=== PATIENT | male | born 1960 | race Caucasian/White ===

== ENCOUNTER → 2016-06-09 | Outpatient (CLI) | payer BC ==
[~2016-06-09] MED LIST: GLIM4TAB31 PO; LISI1TAB PO; OXYC-541 PO; [UNRECOGNIZED DRUG - CODE] PO
== END ==
LOC: NWCC 07:53
PROVIDERS: ATTEND Surgery
DX: E11.621 Type 2 diabetes mellitus with foot ulcer (principal); L97.412 Non-pressure chronic ulcer of right heel and midfoot with fat layer exposed; L84 Corns and callosities
CPT/HCPCS: 99213; A6209

== ENCOUNTER → 2016-06-23 | Outpatient (CLI) | payer BC | LOC: NWCC 07:53 | PROVIDERS: ATTEND Surgery | DX: E11.621 Type 2 diabetes mellitus with foot ulcer (principal); L97.412 Non-pressure chronic ulcer of right heel and midfoot with fat layer exposed; L84 Corns and callosities | CPT/HCPCS: 11042; 99213; A6209 ==

== ENCOUNTER → 2016-07-07 | Outpatient (CLI) | payer BC ==
[~2016-07-07] MED LIST changes: +SALINE FLUSH 10ml SYRINGE IVF ONE
== END ==
LOC: NWCC 07:49
PROVIDERS: ATTEND Surgery
DX: E11.621 Type 2 diabetes mellitus with foot ulcer (principal); L97.412 Non-pressure chronic ulcer of right heel and midfoot with fat layer exposed; L84 Corns and callosities; E11.42 Type 2 diabetes mellitus with diabetic polyneuropathy
CPT/HCPCS: 11055; A6209; A6212

== ENCOUNTER → 2016-07-21 | Outpatient (CLI) | payer BC ==
[~2016-07-21] MED LIST changes: -SALINE FLUSH 10ml SYRINGE IVF ONE
== END ==
LOC: NWCC 07:52
PROVIDERS: ATTEND Surgery
DX: E11.621 Type 2 diabetes mellitus with foot ulcer (principal); L97.412 Non-pressure chronic ulcer of right heel and midfoot with fat layer exposed; L84 Corns and callosities; E11.69 Type 2 diabetes mellitus with other specified complication
CPT/HCPCS: 99213; A6209